=== PATIENT | male | born 1990 | race African-American/Black ===

== ENCOUNTER 2021-10-09 14:38 | Emergency (ER) | payer OTHER ==
[~2021-10-09] VITALS: Ht 188 cm; Wt 120.2 kg
--- NOTE | 2021-10-09 15:00 | NUR ---
The patient bibs for c/o dizziness and weakness. The patient states taht he is scheduled for colonoscopy on 10/17/2021. In room air and denies SOB. Respiration regular and unlabored. Attached to the monitor. Warm blanket provided for comfort. Will continue to monitor the patient.
--- NOTE | 2021-10-09 15:14 | NUR ---
IV LINE IS ESTABLISHED, BLOOD SPECIMEN COLLECTED AND SENT TO THE LAB. THE LINE IS SALINE LOCKED.
[2021-10-09 15:22] LABS: BASOPHILS # (AUTO) 0.1 K/uL (0.0-0.2); BASOPHILS % (AUTO) 0.6 % (0.0-2.0); EOSINOPHILS % (AUTO) 0.7 % (0.0-6.0); HEMATOCRIT 47 % (39-51); HEMOGLOBIN 15.9 g/dL (13.5-17.5); LYMPHOCYTES # (AUTO) 1.3 K/uL (0.8-4.8); LYMPHOCYTES % (AUTO) 15.9 % (20.0-44.0); MEAN CORPUSCULAR HGB CONC 34 g/dl (31.0-36.0); MEAN CORPUSCULAR VOLUME 87 fL (80-96); MONOCYTES # (AUTO) 0.7 K/uL (0.1-1.30); MONOCYTES % (AUTO) 8.5 % (2.0-12.0); NEUTROPHILS # (AUTO) 6.1 K/uL (1.8-8.9); NEUTROPHILS % (AUTO) 74.3 % (43.0-81.0); PLATELET COUNT (AUTO) 246 K/uL (150-450); RED BLOOD CELL COUNT(AUTO) 5.45 MIL/uL (4.5-6.0); WHITE BLOOD COUNT (AUTO) 8.2 K/uL (4.3-11.0)
--- NOTE | 2021-10-09 15:28 | NUR ---
The patient is taken to CT via gurney.
--- NOTE | 2021-10-09 15:33 | NUR ---
The patient is back from CT via [facility]
[2021-10-09 15:35] LABS: CALCIUM, SERUM 9.6 mg/dL (8.5-10.1); CREATININE 1.2 mg/dL (0.6-1.3); POTASSIUM 3.6 mmol/L (3.5-5.1)
[2021-10-09 15:41] LABS: ALBUMIN 4.2 g/dL (3.4-5.0); BILIRUBIN,DIRECT 0.2 mg/dL (0.0-0.2); BILIRUBIN,TOTAL 1.2 mg/dL (0.2-1.0); TOTAL PROTEIN, SERUM 8.1 g/dL (6.4-8.2)
--- NOTE | 2021-10-09 17:13 | NUR ---
COVID ANTOGEN SWAB DONE AND SENT TO THE LAB
--- NOTE | 2021-10-09 17:13 | NUR ---
IV removed. Catheter intact and site benign. Pressure and 4x4 applied to site. No bleeding noted.Patient discharged to home in stable condition. Written and verbal after care instructions given. Patient verbalizes understanding of instruction.
[2021-10-09 17:14] VITALS: BP 124/67
== END 2021-10-09 17:14 | disposition home or self-care (01) ==
LOC: ER 14:50
DX: R53.1 Weakness (principal); Z20.822 Contact with and (suspected) exposure to COVID-19; K92.1 Melena
CPT/HCPCS: 36415; 70450; 71045; 80048; 80076; 82962; 85025; 87426; 93005; 99285; C9803

== ENCOUNTER 2025-01-27 21:36 | Emergency (ER) | payer OTHER ==
[~2025-01-27] VITALS: Ht 182.9 cm; Wt 106.6 kg
[2025-01-27 22:34] LABS: ASPARTATE AMINOTRANSFERASE 17.0 U/L (15-37); CALCIUM, SERUM 9.2 mg/dL (8.5-10.1); CREATININE 1.1 mg/dL (0.6-1.3); SODIUM SERUM 144.0 mmol/L (136-145); TOTAL PROTEIN, SERUM 7.6 g/dL (6.4-8.2); UREA NITROGEN, BLOOD 17.0 mg/dL (7-18)
[2025-01-27 22:50] LABS: PLATELET COUNT (AUTO) 242 K/uL (150-450); RED BLOOD CELL COUNT(AUTO) 5.50 MIL/uL (4.5-6.0); RED CELL DISTRIBUTION WIDTH 14.4 % (11.5-15.0); WHITE BLOOD COUNT (AUTO) 7.9 K/uL (4.3-11.0)
[2025-01-27] MEDS ORDERED: ONDANSETRON HCL/PF 4 MG/2 ML VIAL ONE (22:52)
[2025-01-27] MEDS ORDERED: MORPHINE SULFATE INJ 2 MG/ML DISP.SYRIN ONE (22:52)
[2025-01-27] MEDS: IV NS 0.9% 1,000 ML BAG IV ONE (23:07)
[2025-01-27] MEDS: ONDANSETRON HCL/PF 4 MG/2 ML VIAL IV ONE (23:07)
[2025-01-27] MEDS: MORPHINE SULFATE INJ 2 MG/ML DISP.SYRIN IV ONE (23:11)
[2025-01-27 23:31] LABS: APPEARANCE,URINE CLEAR (CLEAR); BLOOD, URINE NEGATIVE Ery/uL (NEGATIVE); LEUKOCYTE ESTERASE ,URINE NEGATIVE (NEGATIVE); NITRITE, URINE NEGATIVE (NEGATIVE); UGLUCOSE NEGATIVE (NEGATIVE)
[2025-01-27 23:38] LABS: INR 1.06 (0.91-1.10)
[2025-01-27 23:54] LABS: ADD URINE CULTURE NO; SQUAMOUS EPITHELIAL CELL,UR Few /HPF (None Seen)
[2025-01-28 00:18] VITALS: BP 149/88; TEMP 98.2; O2SAT 99
== END 2025-01-28 00:26 | disposition home or self-care (01) ==
LOC: ER 21:41
DX: R07.89 Other chest pain (principal); Z60.2 Problems related to living alone
CPT/HCPCS: 99285; 74176; 96374; 85025; 80048; 83690; 80076; 81001; 36415; 85730; J2405; J7030; J2270